=== PATIENT | female | born 2000 | race Caucasian/White ===

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

== ENCOUNTER 2021-02-09 02:52 | Inpatient (IN) | payer OTHER ==
[~2021-02-09] VITALS: Ht 160 cm; Wt 90.0 kg
[~2021-02-09 02:52] MED LIST: CEFD300C37 PO; PREN-75 PO
[2021-02-09 02:59] VITALS: BP 152/85
[2021-02-09] MEDS ORDERED: NEWBORN KIT ONE (03:58)
[2021-02-09] MEDS ORDERED: OXYTOCIN 30U/ 0.9% NaCL 500ML 500 ML ONE (03:58)
[2021-02-09] MEDS ORDERED: MISOPROSTOL 200 MCG TABLET ONE (03:58)
[2021-02-09] MEDS ORDERED: LIDOCAINE 1%, 20ML ONE (03:58)
[2021-02-09 04:03] LABS: ALANINE AMINOTRANSFERASE 15 U/L (12-78); ALBUMIN 2.4 g/dL (3.4-5.0); ANION GAP 9 mmol/L (5-15); BASOPHILS % (AUTO) 0 % (0-1); CALCIUM 8.5 mg/dL (8.5-10.1); CHLORIDE 107 mmol/L (98-107); EOSINOPHILS % (AUTO) 0 % (1-7); LYMPHOCYTES % (AUTO) 21 % (22-44); MEAN CORPUSCULAR HEMOGLOBIN 27.4 pg (27.0-34.8); MEAN CORPUSCULAR HGB CONC 33.8 g/dL (32.4-35.8); MEAN PLATELET VOLUME 9.2 fL (7.4-10.4); MONOCYTES % (AUTO) 9 % (2-9); NEUTROPHILS % (AUTO) 70 % (42-75); PLATELET COUNT 212 x10^3/uL (130-400); RED BLOOD COUNT 4.78 x10^6/uL (3.82-5.3); RED CELL DISTRIBUTION WIDTH 15.2 % (9.6-15.2)
[2021-02-09 04:05] LABS: MICROSCOPIC INDICATED
[2021-02-09 04:05] LABS: ALKALINE PHOSPHATASE 300 U/L (45-117); BILIRUBIN,TOTAL 0.2 mg/dL (0.2-1.0)
[2021-02-09 04:06] LABS: BILIRUBIN, DIRECT < 0.1 mg/dL (0.1-0.2)
[2021-02-09] MEDS ORDERED: OXYTOCIN 30U/ 0.9% NaCL 500ML 500 ML IV PRN (04:30)
[2021-02-09] MEDS ORDERED: BETAMETHASONE 6 MG/ML, 5ML IM ONE (04:30)
[2021-02-09] MEDS ORDERED: AMPICILLIN 2 GM in SODIUM CHLORIDE 0.9% 100 ML IVPB ONE (04:30)
[2021-02-09] MEDS ORDERED: FENTANYL PF 100 MCG/2ML IV PRN (04:30)
[2021-02-09] MEDS ORDERED: OXYTOCIN 30U/ 0.9% NaCL 500ML 500 ML IV ONE (04:30)
[2021-02-09] MEDS ORDERED: SODIUM CHLORIDE FLUSH 10ML SYR IVF PRN (04:30)
[2021-02-09] MEDS ORDERED: METOCLOPRAMIDE 5 MG/ML, 2ML IVPush PRN (04:30)
[2021-02-09] MEDS ORDERED: SODIUM CITRATE/CITRIC ACID 30 ML UDC PO PRN (04:30)
[2021-02-09] MEDS: LACTATED RINGERS 1,000 ML IV SCH ×3 (04:30→17:46)
[2021-02-09] MEDS ORDERED: TERBUTALINE 1 MG/ML, 1ML IVPush PRN (04:30)
[2021-02-09] MEDS ORDERED: D5%-LACTATED RINGERS 1,000 ML IV SCH (04:30)
[2021-02-09] MEDS ORDERED: TERBUTALINE 1 MG/ML, 1ML SQ PRN (04:30)
[2021-02-09] MEDS ORDERED: CALCIUM CARBONATE 500 MG TAB.CHEW PO PRN (04:30)
[2021-02-09] MEDS ORDERED: ONDANSETRON 2MG/ML, 2ML IVPush PRN (04:30)
[2021-02-09 04:34] LABS: AMPHETAMINE SCREEN, URINE Negative (Negative); BARBITURATE SCREEN, URINE Negative (Negative); BENZODIAZEPINE SCREEN, URINE Negative (Negative); CANNABINOID SCREEN, URINE Negative (Negative); COCAINE SCREEN, URINE Negative (Negative); METHADONE SCREEN, URINE Negative (Negative); OPIATE SCREEN, URINE Negative (Negative)
[2021-02-09 04:35] LABS: PROTEIN/CREATININE RATIO,URINE 2646 (0-200); TOTAL PROTEIN,URINE RANDOM 236 mg/dL (0-12)
[2021-02-09] MEDS: AMPICILLIN 1 GM in SODIUM CHLORIDE 0.9% 100 ML IVPB SCH ×2 (08:38→12:35)
[2021-02-09] MEDS: FENTANYL PF 100 MCG/2ML IVPush PRN ×2 (13:12→14:31)
[2021-02-09] MEDS ORDERED: HYDROcodone/APAP 5/325 TABLET PO PRN (17:30)
[2021-02-09] MEDS ORDERED: SIMETHICONE 80 MG CHEW TAB PO PRN (17:30)
[2021-02-09] MEDS ORDERED: MISOPROSTOL 200 MCG TABLET PR PRN (17:30)
[2021-02-09] MEDS: OXYTOCIN 30U/ 0.9% NaCL 500ML 500 ML IV SCH (17:46)
[2021-02-09 19:40] VITALS: BP 140/81
[2021-02-10 00:09] VITALS: BP 137/82
[2021-02-10 00:39] LABS: BASOPHILS % (AUTO) 0 % (0-1); EOSINOPHILS % (AUTO) 0 % (1-7); LYMPHOCYTES % (AUTO) 7 % (22-44); MEAN CORPUSCULAR HEMOGLOBIN 26.5 pg (27.0-34.8); MEAN CORPUSCULAR HGB CONC 32.8 g/dL (32.4-35.8); MEAN PLATELET VOLUME 8.9 fL (7.4-10.4); MONOCYTES % (AUTO) 6 % (2-9); NEUTROPHILS % (AUTO) 87 % (42-75); PLATELET COUNT 215 x10^3/uL (130-400); RED BLOOD COUNT 5.02 x10^6/uL (3.82-5.3); RED CELL DISTRIBUTION WIDTH 15.1 % (9.6-15.2)
[2021-02-10] MEDS: OXYTOCIN 30U/ 0.9% NaCL 500ML 500 ML IV SCH ×3 (03:30→23:30)
[2021-02-10 04:30] VITALS: BP 133/75
[2021-02-10 08:00] VITALS: BP 133/76
[2021-02-10] MEDS: PRENATAL VIT/IRON/FA 1 EACH TABLET PO SCH (08:11)
[2021-02-10] MEDS: DOCUSATE 100 MG CAPSULE PO PRN (08:11)
[2021-02-10 12:30] VITALS: BP 130/84
[2021-02-10 20:50] VITALS: BP 139/81
[2021-02-11 07:30] VITALS: BP 132/80
[2021-02-11] MEDS: PRENATAL VIT/IRON/FA 1 EACH TABLET PO SCH (08:41)
[2021-02-11] MEDS: DOCUSATE 100 MG CAPSULE PO PRN (08:41)
[2021-02-11] MEDS ORDERED: MEDROXYPROGESTERONE ACETATE 150 MG/ML IM ONE (09:00)
== END 2021-02-11 14:25 | disposition home or self-care (01) | DRG 807 ==
LOC: LDOP 02:52 → LDIP 04:04 → 2NW 20:00
PROVIDERS: ADMIT Obstetrics & Gynecology; ATTEND Obstetrics & Gynecology
PROC: 10E0XZZ Delivery of Products of Conception, External Approach (ICD-10-PCS; principal; 2021-02-09)
DX: O42.913 Preterm premature rupture of membranes, unspecified as to length of time between rupture and onset of labor, third trimester (principal); Z37.0 Single live birth; Z20.822 Contact with and (suspected) exposure to COVID-19; Z3A.35 35 weeks gestation of pregnancy
CPT/HCPCS: 36415; J7121; 76805; 80053; 80307; 81001; 82248; 82570; 83036; 84112; 84156; 84550; 85025; 86592; 86850; 86900; 87081; 87147; 87635; G0378; J0290; J0702; J3010; J1050; J2590; J7120